=== PATIENT | female | born 1950 | race Caucasian/White ===

== ENCOUNTER → 2017-08-19 | Day surgery (SDC) | payer OTHER, MEDICARE ==
[~2017-08-19] MED LIST: ACETAMINOPHEN 325 MG TAB PO PRN; ALTEPLASE 2 MG VIAL IVP PRN; BUPIVACAINE 0.5% 30 ML SDV ONE; FLUMAZENIL 0.5 MG/5 ML MDV IVP PRN; GLUCAGON HCL 1 MG VIAL IVP PRN; HEPARIN 10,000 UNIT/10 ML MDV IVP PRN; LIDOCAINE 1% 300 MG/30 ML SDV ONE; MEPERIDINE 25 MG/ML SYR IVP PRN; MIDAZOLAM 2 MG/2 ML VIAL IVP PRN; MIDAZOLAM 2 MG/2 ML VIAL ONE; NALOXONE HCL 0.4 MG/ML INJ IVP PRN; NS 1,000 ML IV SCH; ONDANSETRON 4 MG/2 ML VIAL IVP PRN; PROTAMINE SULFATE 50 MG/5 ML VIAL IVP PRN; fentaNYL 100 MCG/2 ML INJ IVP PRN; fentaNYL 100 MCG/2 ML INJ ONE
[2017-08-19 10:05] VITALS: PULSE 70; RESP 16; TEMP 99.3
--- NOTE | 2017-08-19 10:49 | PDGENHP ---
History & Physical Chief Complaint: Pain and weakness in neck History of Present Illness: One year duration. Fibromyalgia. Pertinent Past, Social, Family History: Parathyroidectomy (adenoma). Osteoporosis. No history of CA. Cardiorespiratory Assessment: Heart: RRR; no murmur, 72 bpm. Lungs: Clear to auscultation.
--- NOTE | 2017-08-19 10:50 | PDPROPOC ---
Sedation Plan of Care Sedation Plan of Care: vital signs stable, mental status noted, patient educated of risks, benefits, alternatives, patient can tolerate sedation ASA Classification: ASA 2 Planned drugs: fentanyl, midazolam Mallampati Score: Class 4 Mallampati Reference Image: Patient passed 3-3-2 rule?: Yes
[2017-08-19 12:02] VITALS: BP 153/96; O2SAT 97
--- NOTE | 2017-08-19 12:19 | PDRADPN ---
Radiology Procedure Note Date of Procedure: 08/19/17 Radiologist: Conner Avelar Anesthesia: IV Sedation Pre-op Diagnosis: Fibromyalgia Post-op Diagnosis: same Indication: abnormal C5 Procedure: Core needle biopsy of C5. Right pedicle and vertebral body. Finding(s): Two cores and marrow aspirate obtained. Inf/Abcess present in the surg proc area at time of surgery?: No EBL: Minimal Complications: 0 Specimen(s): Processed immediately with bone marrow tech
[2017-08-20 16:19] LABS: FINAL DIAGNOSIS See Comments; MICROSCOPIC DESCRIPTION See Comments; SPECIAL STUDIES See Comments
== END | disposition home or self-care (01) ==
LOC: FIMAGING 08:46
PROVIDERS: ATTEND Radiology Diagnostic Radiology
PROC: 0PB Upper Bones, Excision (ICD-10-PCS; principal; 2017-08-19 12:10)
PROC: BR141ZZ Fluoroscopy of Cervical Facet Joint(s) using Low Osmolar Contrast (ICD-10-PCS; principal; 2017-08-19 12:10)
DX: G95.9 Disease of spinal cord, unspecified (principal); M54.2 Cervicalgia; M79.7 Fibromyalgia; M62.81 Muscle weakness (generalized)
CPT/HCPCS: 85060-90; 88184-90; 88185-91; J2250; J3010